=== PATIENT | female | born 1955 | race Caucasian/White ===

== ENCOUNTER 2017-03-26 03:43 | Observation (INO) | payer OTHER ==
[~2017-03-26] VITALS: Ht 175.3 cm; Wt 80.0 kg
[2017-03-26 03:46] VITALS: BP 126/81; PULSE 66; RESP 18; TEMP 98.1; O2SAT 95
[2017-03-26] MEDS ORDERED: ESOM1CAP6 PO (04:00)
[2017-03-26] MEDS ORDERED: IBUP1TAB7 PO (04:00)
[2017-03-26] MEDS ORDERED: ONDANSETRON HCL 4 MG/2 ML VIAL IV PUSH ONE (04:15)
[2017-03-26] MEDS ORDERED: SODIUM CHLOR 0.9% 1000 ML INJ 1,000 ML IV SCH (04:15)
[2017-03-26 04:33] LABS: AUTOMATED NEUTROPHIL # 6.6 TH/MM3 (1.8-7.7); BASOPHIL # 0.1 TH/MM3 (0-0.2); BASOPHIL % 0.7 % (0.0-2.0); EOSINOPHIL # 0.2 TH/MM3 (0-0.4); EOSINOPHIL % 1.6 % (0.0-4.0); HEMATOCRIT 38.5 % (35.0-46.0); HEMOGLOBIN 13.8 GM/DL (11.6-15.3); LYMPH % 25.8 % (9.0-44.0); LYMPHOCYTE # 2.6 TH/MM3 (1.0-4.8); MEAN CELL VOLUME 94.2 FL (80.0-100.0); MEAN CORPUSCULAR HEMOGLOBIN 33.9 PG (27.0-34.0); MEAN CORPUSCULAR HGB CONC 35.9 % (32.0-36.0); MEAN PLATELET VOLUME 10.9 FL (7.0-11.0); MONO % 6.2 % (0.0-8.0); MONOCYTE # 0.6 TH/MM3 (0-0.9); NEUT % 65.7 % (16.0-70.0); PLATELET COUNT 232 TH/MM3 (150-450); RED BLOOD COUNT 4.08 MIL/MM3 (4.00-5.30); RED CELL DISTRIBUTION WIDTH 13.6 % (11.6-17.2); WHITE BLOOD COUNT 10.1 TH/MM3 (4.0-11.0)
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
[2017-03-26 04:47] LABS: ALBUMIN 3.8 GM/DL (3.4-5.0); AST (GOT) 19 U/L (15-37); BLOOD UREA NITROGEN 21 MG/DL (7-18); CALCIUM 8.8 MG/DL (8.5-10.1); CHLORIDE 108 MEQ/L (98-107); GLOMERULAR FILTRATION RATE 73 ML/MIN (>89); GLUCOSE,RANDOM 122 MG/DL (74-106); LIPASE 115 U/L (73-393); SODIUM (NA) 141 MEQ/L (136-145)
--- NOTE | 2017-03-26 04:47 | RADRPT ---
EXAM DATE/TIME: 03/26/2017 04:28 [facility] COMPARISON: No previous studies available for comparison. INDICATIONS : Dizziness. RADIATION DOSE: 34.63 CTDIvol (mGy) MEDICAL HISTORY : Seizures. Vertigo. SURGICAL HISTORY : None. ENCOUNTER: Initial ACUITY: 1 day PAIN SCALE: 0/10 LOCATION: cranial TECHNIQUE: Multiple contiguous axial images were obtained of the head. Using automated exposure control and adj ustment of the mA and/or kV according to patient size, radiation dose was kept as low as reasonably a chievable to obtain optimal diagnostic quality images. DICOM format image data is available electro nically for review and comparison. FINDINGS: CEREBRUM: The ventricles are normal for age. No evidence of midline shift, mass lesion, hemorrhage or acute in farction. No extra-axial fluid collections are seen. POSTERIOR FOSSA: The cerebellum and brainstem are intact. The 4th ventricle is midline. The cerebellopontine angle i s unremarkable. EXTRACRANIAL: The visualized portion of the orbits is intact. SKULL: The calvaria is intact. No evidence of skull fracture. CONCLUSION: 1. No evidence of acute intracranial pathology. No masses are identified. Marcus Martin MD on March 26, 2017 at 4:44 Board Certified Radiologist. This report was verified electronically.
[2017-03-26 04:48] LABS: ALT (GPT) 35 U/L (10-53)
[2017-03-26 04:52] LABS: ALKALINE PHOSPHATASE 95 U/L (45-117); TOTAL BILIRUBIN ADULT 0.4 MG/DL (0.2-1.0); TOTAL PROTEIN 7.6 GM/DL (6.4-8.2); TROPONIN I LESS THAN 0.02 NG/ML (0.02-0.05)
--- NOTE | 2017-03-26 04:54 | RADRPT ---
EXAM DATE/TIME: 03/26/2017 04:44 [facility] COMPARISON: No previous studies available for comparison. INDICATIONS : Cough. MEDICAL HISTORY : None. SURGICAL HISTORY : None. ENCOUNTER: Initial ACUITY: 1 day PAIN SCORE: 0/10 LOCATION: Bilateral chest FINDINGS: The cardiac silhouette is normal in transverse diameter. The lungs are free of acute parenchymal opac ity. No effusions are identified. There is elevation of the right hemidiaphragm. CONCLUSION: 1. No acute cardiopulmonary disease. Marcus Martin MD on March 26, 2017 at 4:52 Board Certified Radiologist. This report was verified electronically.
[2017-03-26] MEDS ORDERED: MECLIZINE HCL 25 MG TAB PO ONE (06:00)
[2017-03-26] MEDS ORDERED: ASPIRIN 325 MG TAB PO ONE (06:15)
[2017-03-26 06:23] VITALS: BP 107/75; PULSE 62; RESP 18; O2SAT 97
[2017-03-26 06:27] LABS: BACTERIA, URINE RARE /hpf; BILIRUBIN, URINE NEG (NEG); BLOOD, URINE TRACE (NEG); GLUCOSE,URINE NEG (NEG); KETONE, URINE NEG (NEG); MUCUS URINE FEW /lpf (OCC); NITRITE,URINE NEG (NEG); PH, URINE 6.5 (5.0-8.5); SQUAMOUS EPITHELIAL CELL URINE <1 /hpf (0-5); URINE COLOR YELLOW (YELLW/STRAW); URINE LEUKOCYTE ESTERASE TRACE (NEG)
[2017-03-26] MEDS ORDERED: NALOXONE HCL 0.4 MG/ML AMP IV PUSH PRN (07:00)
[2017-03-26] MEDS ORDERED: SODIUM CHLORIDE 0.9% FLUSH 10 ML FLUSH IV FLUSH PRN (07:00)
[2017-03-26 07:27] VITALS: BP_SYST 111; BP_SYST 113; BP_SYST 115; BP_DIAS 61; BP_DIAS 66; BP_DIAS 72; RESP 15; RESP 17; TEMP 98.5; O2SAT 97
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
[2017-03-26] MEDS ORDERED: SODIUM CHLORIDE 0.9% FLUSH 10 ML FLUSH IV FLUSH SCH (09:00)
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
--- NOTE | 2017-03-26 09:47 | RADRPT ---
EXAM DATE/TIME: 03/26/2017 08:50 [facility] COMPARISON: No previous studies available for comparison. INDICATIONS : Transient ischemic attack. MEDICAL HISTORY : Transient ischemic attack. Tobacco use. SURGICAL HISTORY : Orthopedic surgery, left wrist. Skull surgery. ENCOUNTER: Initial ACUITY: 1 day PAIN SCORE: 0/10 LOCATION: Bilateral neck PEAK SYSTOLIC VELOCITIES (cm/sec): ICA/CCA RATIO: Right: 1.0 Left: 1.3 ICA: Right: 96.9 Left: 101.6 CCA: Right: 92.4 Left: 77.4 ECA: Right: 81.4 Left: 96.8 VERTEBRAL: Right: 52.9 antegrade Left: 47.0 antegrade Elevated flow velocities and ICA/CCA ratios have been found to correlate with increased degrees of vessel stenosis, calculated as percentage of diameter relative to a normal segment of distal ICA/CCA FINDINGS: RIGHT CAROTID: No significant stenosis is visualized. The waveforms are within normal limits. LEFT CAROTID: No significant stenosis is visualized. The waveforms are within normal limits. VERTEBRAL ARTERIES: Antegrade flow is seen in both vertebral arteries. MISCELLANEOUS: There is a solid lesion in the left thyroid lobe measuring 2.4 x 2.0 cm. CONCLUSION: 1. No hemodynamically significant stenosis another carotid artery. 2. Solid left thyroid nodule measuring 2.4 cm. Followup thyroid sonogram as an outpatient recommended . Kwesi Serrato MD on March 26, 2017 at 9:44 Board Certified Radiologist. This report was verified electronically.
[2017-03-26] MEDS ORDERED: ZOFR4TAB PO (09:52)
[2017-03-26] MEDS ORDERED: MECL-62 PO (09:52)
[2017-03-26 10:55] LABS: TROPONIN I LESS THAN 0.02 NG/ML (0.02-0.05)
[2017-03-26 12:12] VITALS: BP 110/64; PULSE 69; RESP 17; TEMP 98.4; O2SAT 96
[2017-03-26 14:02] VITALS: BP 93/54; PULSE 72; RESP 18; TEMP 98.2; O2SAT 92
[2017-03-26 15:11] VITALS: BP 126/58; PULSE 79; RESP 18; TEMP 98.1; O2SAT 97
--- NOTE | 2017-03-26 21:19 | EKG ---
Date Performed: 03/26/2017 Time Performed: 04:01:48 PTAGE: 61 years EKG: Sinus rhythm NORMAL ECG PREVIOUS TRACING : 03/20/2017 06.29 DOCTOR: Kena Niño Interpretating Date/Time 03/26/2017 21:17:26
--- NOTE | 2017-03-26 21:42 | MG ---
cc: PRATIBHA RIOS MD Lab No: Date: 03/26/2017 Age: Sex: F Race: DATE OF [address] Vazquez[address] MEDICAL HISTORY Traumatic brain injury, history of seizures. Woke up from sleep noticed everything was spinning around her. Nausea and vomiting. MEDICATIONS 1. Aspirin. 2. Antivert. 3. Soma. DESCRIPTION Background activity is 9-10 Hz alpha located posterior, bilateral and symmetrical. There is posterior, anterior gradient of the alpha rhythm. Hyperventilation did not make a change in the EEG. During the recording there was drop out of background. Alpha activity replaced by theta, appearance of sleep spindles and K complexes. The patient has transitioned to stage II sleep. Photic stimulation did not elicit driving response. There were no electrographic seizures or epileptiform discharges noted. INTERPRETATION This is a normal awake, drowsy and asleep EEG. There were no electrographic seizures or epileptiform discharges noted. Clinical correlation is recommended. Pratibha Rios MD RGO/KK /7:22 PM /9:17 PM [facility]
== END 2017-03-26 19:01 | disposition home or self-care (01) ==
LOC: NEPE 03:43 → NEDA 06:31
PROVIDERS: ADMIT Hospitalist; ATTEND Hospitalist
DX: R42 Dizziness and giddiness (principal); R11.2 Nausea with vomiting, unspecified; R05 Cough; R09.81 Nasal congestion; J34.89 Other specified disorders of nose and nasal sinuses; R56.9 Unspecified convulsions; K58.9 Irritable bowel syndrome, unspecified; F17.200 Nicotine dependence, unspecified, uncomplicated; Z87.820 Personal history of traumatic brain injury; Z88.0 Allergy status to penicillin; Z88.2 Allergy status to sulfonamides; Z88.5 Allergy status to narcotic agent
CPT/HCPCS: 70450; 70544; 70551; 71045; 80053; 81001; 82550; 82552; 83690; 83735; 84484; 85025; 85610; 85730; 93005; 93880; 95819; 96361; 96374; 97161; 99285; G0378; G8987; G8988; J2405; J7030